=== PATIENT | male | born 1975 | race African-American/Black ===

== ENCOUNTER 2021-08-14 07:09 | Day surgery (SDC) | payer OTHER ==
[2021-08-09 15:05] VITALS: BMI 32.7
[2021-08-14] MEDS ORDERED: PROPOFOL 20 ML ONE ×6 (07:34)
[2021-08-14] MEDS ORDERED: LIDOCAINE HCL/PF 2% SDV 5ML VIAL ONE (07:34)
[2021-08-14 09:02] VITALS: TEMP 98.7
[2021-08-14 09:43] VITALS: BP 110/73; PULSE 66
== END 2021-08-14 09:40 | disposition home or self-care (01) ==
LOC: FASU-ENDO 07:09
PROVIDERS: ATTEND Internal Medicine Gastroenterology
PROC: 0DBL8ZX Excision of Transverse Colon, Via Natural or Artificial Opening Endoscopic, Diagnostic (ICD-10-PCS; 2021-08-14)
PROC: 0DBN8ZX Excision of Sigmoid Colon, Via Natural or Artificial Opening Endoscopic, Diagnostic (ICD-10-PCS; 2021-08-14)
PROC: 0DBM8ZX Excision of Descending Colon, Via Natural or Artificial Opening Endoscopic, Diagnostic (ICD-10-PCS; principal; 2021-08-14 08:20)
DX: Z12.11 Encounter for screening for malignant neoplasm of colon (principal); D12.3 Benign neoplasm of transverse colon; D12.4 Benign neoplasm of descending colon; D12.5 Benign neoplasm of sigmoid colon
CPT/HCPCS: 88305-TC